=== PATIENT | male | born 1990 | race African-American/Black ===

== ENCOUNTER 2016-09-10 11:52 | Observation (INO) | payer OTHER ==
[~2016-09-10] VITALS: Ht 188 cm; Wt 93.6 kg
[~2016-09-10 11:52] MED LIST: BENTYL20 MG PO; CIPROFLOXACIN H10 ML BOTH EYES; ERYTHROMYC1 APPLICAT LEFT EYE; IMODIUM MS REL1 EACH PO; JOCK ITCH15 GM TP; MEDROL DOSEPAK4 MG PO; NAPROSYN500 MG PO; NORCO 5/3251 TABLET PO; ULTRACET1 TABLET PO; ZOFRAN ODT4 MG PO
[2016-09-10 13:49] LABS: HEMATOCRIT 37.4 % (38.0-50.0); MCH 29.4 PG (29.0-34.0); MCHC 33.2 G/DL (30.0-36.0); MCV 88.6 FL (86-99); MEAN PLAT.VOLUME 9.4 uM^3 (9.0-12.4); PLATELET COUNT 237 K/uL (156-360); RBC DIS.WIDTH-SD 41.4 % (39-53); RED BLOOD COUNT 4.22 M/uL (4.00-5.50); WHITE BLOOD COUNT 7.4 K/uL (4.1-10.2)
[2016-09-10 13:59] LABS: CHLORIDE 105 mEq/L (99-109); POTASSIUM 4.3 mEq/L (3.7-5.4); SODIUM 142 mEq/L (136-147)
[2016-09-10 14:02] LABS: GLUCOSE 96 mg/dL (70-99)
[2016-09-10 14:03] LABS: ANION GAP 7 MEQ/L (2-14); TOTAL BILIRUBIN 0.5 mg/dL (0.0-1.0)
[2016-09-10 14:05] LABS: ALKALINE PHOSPHATASE 90 IU/L (3-129); GFR ESTIMATE (CALCULATED) > 59 mL/min/
[2016-09-10 14:06] LABS: UREA NITROGEN (BUN) 11 mg/dL (9-23)
[2016-09-10 14:09] LABS: CREATINE KINASE 3894 IU/L (1-294)
[2016-09-10] MEDS ORDERED: HYDROCHLOROTHIA25 MG PO (15:21)
[2016-09-10] MEDS ORDERED: ZESTRIL10 MG PO (15:22)
[2016-09-10 17:28] LABS: ADD MIUA? NO; BILIRUBIN NEGATIVE; BLOOD NEGATIVE; COLOR YELLOW ((YELLOW)); GLUCOSE (STRIP) NEGATIVE; KETONES NEGATIVE; LEUKOCYTES NEGATIVE; NITRITE NEGATIVE; PH, URINE 6.5 (5-8); PROTEIN (STRIP) NEGATIVE; SPECIFIC GRAVITY 1.018 (1.000-1.030); UCUL ADDED? NO
[2016-09-10 17:52] VITALS: BP 167/98
[2016-09-10 19:32] VITALS: BP 150/84
[2016-09-11 00:18] VITALS: BP 138/88
[2016-09-11 03:58] VITALS: BP 162/83
[2016-09-11 07:00] LABS: ALKALINE PHOSPHATASE 80 IU/L (3-129); ANION GAP 6 MEQ/L (2-14); CHLORIDE 102 MEQ/L (99-109); GFR ESTIMATE (CALCULATED) > 59 mL/min/; GLUCOSE 83 mg/dL (70-99); POTASSIUM 4.1 MEQ/L (3.7-5.4); SAMPLE HEMOLYSIS CHECK 0; SAMPLE ICTERIC CHECK 0; SAMPLE LIPEMIA CHECK 0; SODIUM 140 MEQ/L (136-147); TOTAL BILIRUBIN 0.5 MG/DL (0.0-1.0); UREA NITROGEN (BUN) 11 mg/dL (9-23)
[2016-09-11 07:05] LABS: TOTAL CK 1779 IU/L (1-294)
[2016-09-11 07:07] LABS: CREATINE KINASE 1779 IU/L (1-294)
[2016-09-11 07:43] LABS: CK-MB 2.8 ng/mL (0.0-4.9)
[2016-09-11 08:05] VITALS: BP 139/83
[2016-09-11 11:35] VITALS: BP 132/84
== END 2016-09-11 14:03 | disposition home or self-care (01) ==
LOC: EME 11:52 → EDOF 15:40 → 5WEST 15:40
PROVIDERS: Internal Medicine
DX: M62.82 Rhabdomyolysis (principal); S93.402A Sprain of unspecified ligament of left ankle, initial encounter; E86.0 Dehydration; I10 Essential (primary) hypertension; R94.4 Abnormal results of kidney function studies; Z91.010 Allergy to peanuts; Z91.030 Bee allergy status; Z91.018 Allergy to other foods; R74.0 Nonspecific elevation of levels of transaminase and lactic acid dehydrogenase [LDH]; X50.9XXA Other and unspecified overexertion or strenuous movements or postures, initial encounter; Y99.8 Other external cause status; Y93.62 Activity, american flag or touch football
CPT/HCPCS: 73610; 80053; 81003; 82550; 82553; 85027; 99281; 99285; G0378; J2405; J7030

== ENCOUNTER 2018-04-02 21:01 | Emergency (ER) | payer OTHER ==
[~2018-04-02] VITALS: Ht 188 cm; Wt 96.1 kg
[~2018-04-02 21:01] MED LIST changes: +HYDROCHLOROTHIA25 MG PO; +ZESTRIL10 MG PO
[2018-04-02 21:54] LABS: APPEARANCE CLEAR ((CLEAR)); BILIRUBIN NEGATIVE; BLOOD LARGE; COLOR YELLOW ((YELLOW)); GLUCOSE (STRIP) NEGATIVE; KETONES NEGATIVE; LEUKOCYTES NEGATIVE; NITRITE NEGATIVE; PROTEIN (STRIP) NEGATIVE; SPECIFIC GRAVITY 1.015 (1.000-1.030); UROBILINOGEN 0.2 MG/DL (0.2-1.0)
[2018-04-02 22:01] LABS: BACTERIA NONE SEEN /HPF; EPITHELIAL CELLS NONE SEEN /HPF; MUCUS TRACE /LPF; RED BLOOD CELLS TNTC /HPF (0-5); UCUL ADDED? YES; WHITE BLOOD CELLS 0-5 /HPF (0-5)
[2018-04-02 23:56] LABS: HEMATOCRIT 36.6 % (38.0-50.0); HEMOGLOBIN 12.4 G/DL (12.5-16.6); MCH 30.2 PG (29.0-34.0); MCHC 33.9 G/DL (30.0-36.0); MCV 89.3 FL (86-99); PLATELET COUNT 250 K/uL (156-360); RBC DIS.WIDTH-CV 12.6 % (11.8-14.6); RBC DIS.WIDTH-SD 41.1 % (39-53); WHITE BLOOD COUNT 9.1 K/uL (4.1-10.2)
[2018-04-03 00:08] LABS: CHLORIDE 99 mEq/L (99-109); SODIUM 135 mEq/L (136-147)
[2018-04-03 00:09] LABS: GLUCOSE 84 mg/dL (70-99)
[2018-04-03 00:13] LABS: CREATININE 1.7 mg/dL (0.6-1.3); GFR ESTIMATE (CALCULATED) > 59 mL/min/ (58.99-99999)
[2018-04-03 00:14] LABS: UREA NITROGEN (BUN) 20 mg/dL (9-23)
[2018-04-03] MEDS ORDERED: FLOMAX0.4 MG PO (00:43)
[2018-04-03] MEDS ORDERED: ZOFRAN4 MG PO (00:43)
[2018-04-03] MEDS ORDERED: MOTRIN800 MG PO (00:43)
[2018-04-03] MEDS ORDERED: PERCOCET 5/31 TABLET PO (00:43)
[2018-04-03 00:54] VITALS: BP 168/105
== END 2018-04-03 00:55 | disposition home or self-care (01) ==
LOC: RME 21:01 → EME 21:01 → RME 04-03 00:55
PROVIDERS: Nurse Practitioner Family
DX: N13.2 Hydronephrosis with renal and ureteral calculous obstruction (principal); R35.0 Frequency of micturition; R19.7 Diarrhea, unspecified; I10 Essential (primary) hypertension; Z87.891 Personal history of nicotine dependence
CPT/HCPCS: 74176; 80048; 81003; 85027; 87086; 87186; 99281; 99284; J1885